=== PATIENT | female | born 1965 | race Hispanic/Latino ===

== ENCOUNTER 2020-09-29 06:59 | Day surgery (SDC) | payer OTHER ==
--- NOTE | 2020-09-25 09:10 | RAD REPORT ---
EXAM DESCRIPTION: RAD - Chest Pa And Lat (2 Views) - 09/25/2020 8:53 am CLINICAL HISTORY: preop Chest pain. COMPARISON: Chest Single View dated 12/17/2016 FINDINGS: The lungs are clear. The heart is normal in size. No displaced fractures. IMPRESSION: No acute or concerning finding suspected.
[2020-09-25 09:37] LABS: Absolute Lymphocytes (CBC) 3.1 K/uL (0.7-4.9); Basophils % 0.5 % (0-1.3); Hematocrit 41.2 % (36.0-45.0); Lymphocytes % 35.9 % (15.3-44.8); MPV 9.7 fL (7.6-11.3); RBC Red Blood Cell Count 4.95 M/uL (3.86-4.86)
[2020-09-25 09:50] LABS: Potassium 3.8 mmol/L (3.5-5.1)
--- NOTE | 2020-09-25 10:47 | EKG ---
Test Date: 2020-09-25 Test Time: 07:31:51 Holistic Pulser: DORITA MEASUREMENT RESULTS: Intervals: Rate: 64 ID: [id number] QRSD: 80 QT: 390 QTc: 402 [place]: P: 56 ID: [id number] QRS: 75 T: 61 INTERPRETIVE STATEMENTS: Normal sinus rhythm Normal ECG Compared to ECG 12/17/2016 20:39:57 No significant changes Electronically Signed On 09-25-20 10:46:28 CDT by Aiden Brody
[2020-09-29] MEDS ORDERED: Ringers Lactate 1,000 ML IV ONE (07:33)
[2020-09-29] MEDS ORDERED: CEFOXITIN/SWI 1gm 1 GM/10 ML SYR ONE (07:33)
[2020-09-29] MEDS ORDERED: MIDAZOLAM HCL 2 MG/2 ML INJ ONE (07:39)
[2020-09-29] MEDS ORDERED: FENTANYL CITR 100 MCG/2 ML ONE ×2 (07:39→08:34)
[2020-09-29] MEDS ORDERED: propofoL 200 MG/20 ML VIAL IV ONE (07:39)
[2020-09-29] MEDS ORDERED: LIDOCAINE 1% MPF 5 ML VIAL ONE (07:39)
[2020-09-29] MEDS ORDERED: ROCURONIUM 50 MG/5 ML VIAL IV ONE (07:39)
[2020-09-29] MEDS ORDERED: KETOROLAC 30 MG/ML INJ ONE (08:09)
[2020-09-29] MEDS ORDERED: dexAMETHasone 10 MG/ML VIAL ONE (08:09)
[2020-09-29] MEDS ORDERED: ONDANSETRON 4 MG/2 ML VIAL ONE ×2 (08:09→10:01)
[2020-09-29] MEDS ORDERED: GLYCOPYRROLATE 0.2 MG/ML SYR ONE (08:19)
[2020-09-29] MEDS ORDERED: NEOSTIGMINE 1 MG/ML -5 ML ONE (08:20)
[2020-09-29] MEDS: HYDROMORPHONE HCL 1 MG/ML INJ ONE ×2 (09:01→09:10)
[2020-09-29] MEDS ORDERED: TRAMADOL HCL 50 MG TAB ONE (10:10)
[2020-09-29 12:59] VITALS: BP 106/62; TEMP 96.7; O2SAT 96
--- NOTE | 2020-09-29 19:50 | OP ---
Date of Procedure: 09/29/2020 Surgeon: Emanuel West MD Boatswain Mate: ALEXIA Rousseau. Preoperative Diagnosis: Chronic cholecystitis and biliary dyskinesia. Postoperative Diagnosis: Chronic cholecystitis and biliary dyskinesia. Procedure: Laparoscopic cholecystectomy. Estimated Blood Loss: Minimal. Specimen: Gallbladder. Finding: As above. Anesthesia: General. Complications: None. Disposition: The patient tolerated the procedure in stable condition, taken to Recovery in good gene ral condition. Procedure In Detail: The patient was brought to the OR and placed in supine position. General anest hesia was begun. The patient was prepped and draped in the usual sterile fashion. Marcaine 0.5% was infiltrated locally. A 15-blade was used to make a 1 cm supraumbilical midline incision. Subcutane ous tissue was divided. Fascia was identified and divided. #1 Vicryl stay suture was placed. Perit guevara cavity was entered with sharp and blunt dissection. 12 mm trocar was placed into the peritonea l cavity under direct vision. Pneumoperitoneum was established and then three 5 mm trocars were plac ed, 1 in the epigastrium just to the right of midline and 2 in the right subcostal region. Laparosco py revealed inflammation of the gallbladder. There was some Willie Edgar Rosales adhesions over the live r, which were lysed with sharp dissection and freed. Then the fundus of the gallbladder was retracte d superiorly. Infundibulum was identified and retracted inferolaterally. Cystic duct and cystic art terri were clearly identified with blunt dissection. Clips were placed. Both structures were divided. Cautery was used to remove the gallbladder from the liver bed. Bleeding on the liver bed was contr olled with cautery. There was minimal oozing noted at the end of the case and this was easily contro lled with Surgicel. Gallbladder was retrieved through the umbilicus via an EndoCatch bag. Right upp er quadrant was irrigated. Effluent was clear. No evidence of bleeding or bile leakage appreciated. Subsequently, all trocars were removed under direct vision. Stay sutures were tied to each other t o approximate the fascial defect. Subcutaneous wounds were irrigated. Bleeding was controlled with cautery. 3-0 chromic was used to approximate the subcutaneous tissue and close the skin. Sterile dr essing was applied. Patient was awakened and taken to Recovery in good general condition. Discharge Note: The patient will go to Day Surgery and home when stable. Disposition: Home. Condition: Stable. Discharge Instructions: Resume home medications and diet. Activity as tolerated. No heavy lifting. Remove outer dressing in 2 days. Shower. Keep wound clean and dry. Keep Steri-Strips on at all t imes. Tramadol 1 tablet 50 mg p.o. q.4 p.r.n. pain. Incentive spirometry as ordered. Follow up in my office in a week. Call for appointment. /MODL Voice ID: [id number] Report ID: [id number]
== END 2020-09-29 10:45 | disposition home or self-care (01) ==
LOC: OR 06:59
PROVIDERS: ATTEND Surgery
PROC: 0FT44ZZ Resection of Gallbladder, Percutaneous Endoscopic Approach (ICD-10-PCS; principal; 2020-09-29 08:00)
DX: K81.1 Chronic cholecystitis (principal); K82.8 Other specified diseases of gallbladder; Z20.822 Contact with and (suspected) exposure to COVID-19
CPT/HCPCS: 93005; 85025; 80048; 36415; 88304; 71046; 47562; U0002; J2704; J2250; J3010 ×2; J1100; J1170; J2710; J7120; J2405 ×2

== ENCOUNTER 2022-11-23 20:14 | Emergency (ER) | payer OTHER ==
--- OUTSIDE RECORDS SUMMARY | 2022-11-23 20:18 | XMS REPORT | Continuity of Care Document ---
:1965 Author Organization [facility] t Address [address] [place] [address] Care Team Providers Name Role Phone BEATRIZ VILLAGRAN Attending Clinician Unavailable MD WLIDER Attending Clinician Unavailable [id number] Attending Clinician Unavailable [id number] Attending Clinician Unavailable Beatriz Villagran MD Attending Clinician Chico Cordero Attending Clinician Lab, Adc Fam Pob I Attending Clinician Unavailable Rosi Diamond Attending Clinician ROSI ORTEGA Attending Clinician Unavailable Payers Payer Name Policy Type Policy Number Effective Date Expiration Date S caterinalydia [employer]-MERITAIN/P 2 [id number] 2021 00:00:00 PO Problems Condition Condition Condition Status Onset Resolution Last Treating Co mments Source Name Details Category Date Date Treatment Clinician Date 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 Sriram n (disorder) (disorder) Active Problem 09/02/2020 Prasanna Neuro Allergies, Adverse Reactions, Alerts Allergy Allergy Status Severity Reaction(s) Onset Inactive Treating Comm ents Source Name Type Date Date Clinician NO KNOWN Drug Active [facility] [place] [facility] Social History Social Habit Start Date Stop Date Quantity Comments Source Exposure to Not sure [facility] SARS-CoV-2 (event) Medica l Branch Sex Assigned At [birth year] Krysten tan 00:00:00 00:00:00 Smoking Status Start Date Stop Date Source Tobacco smoking consumption unknown Krysten Julio Medications Ordered Filled Start Stop Current Ordering Indication Dosage Frequency Signature Comments Components Source Medication Medication Date Date Medication? Clinician (SIG) Name Name No known No No known Kelly gonzales medications 5-12 medication Se tan 09:09: s 41 Polyethylen Yes 1{packe Take 1 U nivers e Glycol 8-15 t} Packet by ity of 3350 00:00: mouth [place] (MIRALAX) 00 daily. Medical 17 gram Branch powder ibuprofen Yes 600mg Take 1 Tab U nivers (MOTRIN) 8-15 by mouth ity of 600 mg 00:00: every 8 [place] tablet 00 (eight) Medical hours as Branch needed for Pain (scale 4-6). Vital Signs Vital Name Observation Time Observation Value Comments Source Systolic blood pressure 2021-10-11 14:09:00 136 mm[Hg] Krysten Julio Diastolic blood 2021-10-11 14:09:00 84 mm[Hg] Kelly Julio pressure Heart rate 2021-10-11 14:09:00 75 /min Krysten king Body height 2021-10-11 14:09:00 149.9 cm Krysten king Body weight 2021-10-11 14:09:00 75.116 kg Krysten king BMI 2021-10-11 14:09:00 33.45 kg/m2 Krysten abramsclaudia Procedures This patient has no known procedures. Encounters Start End Encounter Admission Attending Care Care Encounter Source Date/Time Date/Time Type Type Clinicians Facility Department ID 2023-01-10 2023-01-10 Outpatient KRYSTEN VILLAGRAN [id number] Krysten 08:45:00 08:45:00 BEATRIZ rees 2022-12-10 2022-12-10 Outpatient ISMAEL GUEVARA [id number] Alan 11:15:00 11:15:00 01 [facility] 2022-11-14 2022-11-14 Outpatient KRYSTEN VILLAGRAN [id number] Krysten 08:45:00 08:45:00 BEATRIZ Centenoyb old 2022-08-28 2022-08-28 Outpatient HO, KRYSTEN BERMUDEZ [id number] Krysten 00:00:00 00:00:00 BEATRIZ Centenoyb old 2022-08-23 2022-08-23 Outpatient HO, KRYSTEN BERMUDEZ [id number] Krysten 15:30:00 15:30:00 BEATRIZ Seyb old 2022-08-15 2022-08-15 Outpatient [facility] KRYSTEN BERMUDEZ [id number] Krysten 00:00:00 00:00:00 MD ANDREA Seybol d 2021-10-15 2021-10-15 Outpatient HO, KRYSTEN BERMUDEZ [id number] Krysten 00:00:00 00:00:00 BEATIRZ Centenoyb old 2021-10-11 2021-10-11 Outpatient DOR66-FAT KRYSTEN BERMUDEZ [id number] Krysten 11:50:00 11:50:00 Seybol d 2021-10-11 2021-10-11 Outpatient LAB47 KRYSTEN BERMUDEZ [id number] Krysten 10:00:00 10:00:00 Seybol d 2021-10-11 2021-10-11 Office TRAVIS Villagran [id number] Krysten 09:15:00 09:45:00 Visit Beatriz [id number] Seybold [id number] 2021-09-13 2021-09-13 Outpatient HO, KRYSTEN BERMUDEZ [id number] Krysten 09:30:00 09:30:00 BEATRIZ Seyb old 2021-07-16 2021-07-16 Outpatient HO, KRYSTEN BERMUDEZ [id number] Krysten 10:15:00 10:15:00 BEATRIZ Seyb old 2020-08-30 2020-08-31 Outpatient nullFlavo MNA [id number] Memoria 13:15:00 04:59:59 r Neurology 00 l Hodg[place] 2020-08-30 2020-08-31 Outpatient nullFlavo MNA [id number] Memoria 13:15:00 04:59:59 r Neurology 00 l Hodgeman [place] 2020-08-30 2020-08-30 Outpatient JULY Cordero [id number] 08:15:00 23:59:59 Chico Abhi Canela 2020-08-30 2020-08-30 Outpatient ISMAEL GUEVARA [id number] [facility] 08:15:00 08:15:00 00 l [place] 2020-06-11 2020-06-11 Laboratory Lab, Adc Fam Pob I [facility] [id number] Univers 11:24:12 11:44:12 [facility] [id number] [facility] [id number] Zhen as Professio [id number] [address] Office [facility] 2020-06-11 2020-06-11 Outpatient R JORDAN [facility] [id number] Univers 11:35:00 11:35:00 [facility] Results This patient has no known results.
== END 2022-11-23 21:05 | disposition left against medical advice (07) ==
LOC: ER 20:14
DX: Z02.9 Encounter for administrative examinations, unspecified (principal)

== ENCOUNTER → 2023-08-16 | Emergency (ER) | payer OTHER ==
--- NOTE | 2023-08-16 11:03 | RAD REPORT ---
EXAM DESCRIPTION: RAD - Foot Right 3 View - 08/16/2023 10:24 am CLINICAL HISTORY: PAIN COMPARISON: No comparisons FINDINGS: Small plantar calcaneal spur is present. No acute fracture or dislocation present.
--- NOTE | 2023-08-16 11:29 | ER ---
Nurse's Notes [facility] Name: Ellie Johnston Age: 57 yrs Sex: Female : 1965 Arrival Date: 08/16/2023 Time: 09:04 Bed 6 Private MD: Diagnosis: heel spur;right foot pain Presentation: 08/15 09:13 Chief complaint: Tripped in yard yesterday, c/o right foot and ankle pain 8/10 with hb numbness and tingling in right heel. Coronavirus screen: At this time, the client does not indicate any symptoms associated with coronavirus-19. Ebola Screen: No symptoms or risks identified at this time. Initial Sepsis Screen: Does the patient meet any 2 criteria? No. Patient's initial sepsis screen is negative. Does the patient have a suspected source of infection? No. Patient's initial sepsis screen is negative. Risk Assessment: Do you want to hurt yourself or someone else? Patient reports no desire to harm self or others. Onset of symptoms was August 15, 2023. 09:13 Method Of Arrival: Ambulatory hb 09:13 Acuity: SANDEEP 4 hb Triage Assessment: 09:17 General: Appears in no apparent distress. Behavior is calm, cooperative. Pain: Pain hb currently is 8 out of 10 on a pain scale. Neuro: Level of Consciousness is awake, alert, obeys commands, Oriented to person, place, time, situation. Cardiovascular: Patient's skin is warm and dry. Respiratory: Respiratory effort is even, unlabored, Respiratory pattern is regular, symmetrical. Musculoskeletal: Reports right foot and ankle pain, tingling and numbness in right heel. Historical: - Allergies: :17 Bactrim; hb - Home Meds: :17 losartan 25 mg oral tablet daily [Active]; rosuvastatin 5 mg oral tablet daily hb [Active]; aspirin 81 mg Oral tablet,chewable [Active]; - PMHx: : Hypercholesterolemia; Hypertension; polyps removed; hb - PSHx: : Cholecystectomy; Hand - Right; hb - Immunization history:: Adult Immunizations up to date. - Social history:: Smoking status: Patient denies any tobacco usage or history of. Screenin:07 [facility] ED Fall Risk Assessment (Adult) History of falling in the last 3 months, mb9 including since admission No falls in past 3 months (0 pts) Confusion or Disorientation No (0 pts) Intoxicated or Sedated No (0 pts) Impaired Gait No (0 pts) Mobility Assist Device Used No (0 pt) Altered Elimination No (0 pt) Score/Fall Risk Level 0 - 2 = Low Risk Oriented to surroundings, Maintained a safe environment, Educated pt \T\ family on fall prevention, incl call for assistance when getting out of bed. Abuse screen: Denies threats or abuse. Nutritional screening: No deficits noted. Nutritional screening: No deficits noted. Tuberculosis screening: No symptoms or risk factors identified. Assessment: 10:06 General: Appears in no apparent distress. Behavior is calm, cooperative. Pain: mb9 Complains of pain in right foot Pain radiates to right leg Quality of pain is described as throbbing. Neuro: Fink Agitation-Sedation Scale (RASS): 0 - Alert and Calm Level of Consciousness is awake, alert, obeys commands, Oriented to person, place, time. Cardiovascular: Patient's skin is warm and dry. Respiratory: Airway is patent Respiratory effort is even, unlabored, Respiratory pattern is regular, symmetrical. GI: No signs and/or symptoms were reported involving the gastrointestinal system. : No signs and/or symptoms were reported regarding the genitourinary system. EENT: No signs and/or symptoms were reported regarding the EENT system. Derm: Skin is pink, warm \T\ dry. Musculoskeletal: Range of motion: intact in all extremities. 11:19 Reassessment: No changes from previously documented assessment. Patient and/or family mb9 updated on plan of care and expected duration. Pain level reassessed. Patient is alert, oriented x 3, equal unlabored respirations, skin warm/dry/pink. Vital Signs: 09:13 BP 126 / 81; Pulse 84; Resp 16; Temp 98; Pulse Ox 99% on R/A; Weight 66.22 kg; Height 4 hb ft. 11 in. ; Pain 8/10; 10:31 BP 105 / 76; Pulse 80; Resp 18; Pulse Ox 100% on R/A; mb9 11:33 BP 110 / 74; Pulse 74; Resp 16; Pulse Ox 100% on R/A; mb9 09:13 Body Mass Index 29.49 (66.22 kg, 149.86 cm) hb 09:13 Pain Scale: Adult hb ED Course: 09:07 Patient arrived in ED. mg5 09:08 Rony Boss MD is Attending Physician. cp3 09:17 Triage completed. hb 09:17 Arm band placed on. hb 09:19 Client placed on continuous cardiac and pulse oximetry monitoring. NIBP monitoring hb applied. Pulse ox on. NIBP on. 10:06 Montserrat Valerio, RN is Primary Nurse. mb9 10:06 Bed in low position. Call light in reach. Side rails up X 1. Door closed. Noise mb9 minimized. Warm blanket given. 10:07 No provider procedures requiring assistance completed. Patient did not have IV access mb9 during this emergency room visit. 10:26 Foot Right 3 View XRAY In Process Unspecified. EDMS 11:27 Deandre Gomez DPM is Referral Physician. cp3 11:33 Ortho shoe applied to right foot. mb9 Administered Medications: No medications were administered Medication: 10:07 VIS not applicable for this client. mb9 Outcome: 11:28 Discharge ordered by MD. cp3 11:33 Discharged to home ambulatory, mb9 11:33 Condition: stable 11:33 Discharge instructions given to patient, Instructed on discharge instructions, follow up and referral plans. Demonstrated understanding of instructions, follow-up care, 11:34 Patient left the ED. mb9 Signatures: Dispatcher [employer] EDMS Rony Boss MD MD cp3 Esperanza Morales RN RN Montserrat Valerio, RN RN mb9 Miguelina Villagran mg5 Corrections: (The following items were deleted from the chart) 09:19 09:17 Home Meds: losartan-hydrochlorothiazide 50-12.5 mg Oral tab 1 tab once daily; hb hb
--- NOTE | 2023-08-16 11:29 | EDPHYS ---
Physician Documentation [facility] Name: Ellie Johnston Age: 57 yrs Sex: Female : 1965 Arrival Date: 08/16/2023 Time: 09:04 Bed 6 Private MD: ED Physician Rony Boss HPI: 08/15 11:29 This 57 yrs old Female presents to ER via Ambulatory with complaints of Foot cp3 Injury. 11:29 The patient is a 57-year-old female who presents to the ED with right foot and heel cp3 pain after sustaining trauma to the a few days ago. Patient Dors is feels like the bones are rubbing together patient endorses it feels like the bones are rubbing together and makes her foot and heel very uncomfortable. Some numbness to the right plantar heel surface. Historical: - Allergies: 09:17 Bactrim; hb - Home Meds: 09:17 losartan 25 mg oral tablet daily [Active]; rosuvastatin 5 mg oral tablet daily hb [Active]; aspirin 81 mg Oral tablet,chewable [Active]; - PMHx: 09:17 Hypercholesterolemia; Hypertension; polyps removed; hb - PSHx: 09:17 Cholecystectomy; Hand - Right; hb - Immunization history:: Adult Immunizations up to date. - Social history:: Smoking status: Patient denies any tobacco usage or history of. ROS: 11:29 MS/extremity: Positive for pain, tenderness, cp3 11:29 Cardiovascular: Negative for chest pain, palpitations, and edema, Respiratory: Negative for shortness of breath, cough, wheezing, and pleuritic chest pain, Abdomen/GI: Negative for abdominal pain, nausea, vomiting, diarrhea, and constipation, Back: Negative for injury and pain, Skin: Negative for injury, rash, and discoloration, Neuro: Negative for headache, weakness, numbness, tingling, and seizure, Exam: 11:29 Head/Face: Normocephalic, atraumatic. Back: No spinal tenderness. No costovertebral cp3 tenderness. Full range of motion. Skin: Warm, dry with normal turgor. Normal color with no rashes, no lesions, and no evidence of cellulitis. MS/ Extremity: Pulses equal, no cyanosis. Neurovascular intact. Full, normal range of motion. mild tenderness to the plantar surface of the foot Vital Signs: 09:13 BP 126 / 81; Pulse 84; Resp 16; Temp 98; Pulse Ox 99% on R/A; Weight 66.22 kg; Height 4 hb ft. 11 in. ; Pain 8/10; 10:31 BP 105 / 76; Pulse 80; Resp 18; Pulse Ox 100% on R/A; mb9 11:33 BP 110 / 74; Pulse 74; Resp 16; Pulse Ox 100% on R/A; mb9 09:13 Body Mass Index 29.49 (66.22 kg, 149.86 cm) hb 09:13 Pain Scale: Adult hb MDM: 09:08 Patient medically screened. cp3 11:31 Differential diagnosis: fracture, sprain. Data reviewed: vital signs, nurses notes, cp3 radiologic studies, plain films. Consideration of Admission/Observation Escalation of care including admission/observation considered. I considered the following discharge prescriptions or medication management in the emergency department pain meds considered and patient declined. Independent interpretation of the following test(s) in the Emergency Department X-Ray: My interpretation is right foot xray- neg for fracture. 08/15 09:36 Order name: Foot Right 3 View XRAY; Complete Time: 11:24 cp3 08/15 11:27 Order name: Orthopedic shoe; Complete Time: 11:27 cp3 Administered Medications: No medications were administered Disposition Summary: 08/16/23 11:28 Discharge Ordered Notes: Location: Home cp3 Condition: Stable cp3 Diagnosis - heel spur cp3 - right foot pain cp3 Followup: cp3 - With: Deandre Gomez DPM - When: As needed - Reason: Continuance of care Discharge Instructions: - Discharge Summary Sheet cp3 - Heel Spur cp3 Forms: - Medication Reconciliation Form cp3 - Thank You Letter cp3 - Antibiotic Education cp3 - Prescription Opioid Use cp3 - Patient Portal Instructions cp3 - Leadership Thank You Letter cp3 Signatures: Dispatcher [employer] Rony Mejias MD MD cp3 Esperanza Morales RN RN Corrections: (The following items were deleted from the chart) 09:19 09:17 Home Meds: losartan-hydrochlorothiazide 50-12.5 mg Oral tab 1 tab once daily; hb hb
[2023-08-16 12:02] VITALS: BP 110/74; TEMP 98; O2SAT 100
== END ==
LOC: ER 09:04
DX: M77.31 Calcaneal spur, right foot (principal); Z88.1 Allergy status to other antibiotic agents
CPT/HCPCS: 99283